=== PATIENT | male | born 2000 | race African-American/Black ===

== ENCOUNTER 2019-11-08 17:00 | Emergency (ER) | payer MEDICAID, SELFPAY ==
[2019-11-08] MEDS ORDERED: Dexamethasone 4 MG TAB ONE (18:32)
[2019-11-08] MEDS ORDERED: Dexamethasone 4 mg/ml Vial ONE (18:37)
--- NOTE | 2019-11-08 19:12 | RAD ---
EXAM: CHEST TWO VIEWS: 11/08/19 HISTORY: Asthma, ran out of inhaler medicine, shortness of breath. COMPARISON: 03/03/15. FINDINGS: Heart size is normal. The lungs are clear. IMPRESSION: No significant acute intrathoracic disease. POS: RRE
== END 2019-11-08 19:25 | disposition home or self-care (01) ==
LOC: ERS 17:00
DX: J45.909 Unspecified asthma, uncomplicated (principal); F90.9 Attention-deficit hyperactivity disorder, unspecified type
CPT/HCPCS: 71046; 94640; J1100; J7620; J8540

== ENCOUNTER 2023-05-09 13:35 | Emergency (ER) | payer SELFPAY ==
[2023-05-09 14:50] LABS: #Eosinphils 0.2 thou/uL (0.0-0.7); #Monocytes 0.7 thou/uL (0.11-0.59); #Neutrophils 3.5 thou/uL (1.40-6.50); %Basophils 0.4 % (0.0-1.0); %Eosinophils 2.4 % (0.0-10.0); %Lymphocytes 33.7 % (21.0-51.0); %Monocytes 10.4 % (0.0-10.0); %Neutrophils 52.8 % (42.0-75.0); Mean Corpuscular HGB CONC 34.1 g/dL (32.0-36.0); Mean Corpuscular Hemoglobin 29.7 pg (27.0-31.0); Mean Corpuscular Volume 87.1 fl (78.0-98.0); Mean Platelet Volume 9.3 fL (7.4-10.4); Platelet Count 306 10x3/uL (130-400); RBC Distribution Width 12.7 % (11.5-14.5); Red Blood Cell (RBC) Count 4.72 mill/uL (4.70-6.10); White Blood Cell (WBC) Count 6.7 10x3/uL (4.8-10.8)
[2023-05-09] MEDS ORDERED: Ketorolac Tromethamine 30 MG/ML VIAL ONE (14:55)
[2023-05-09 15:30] LABS: ALT (SGPT) 32 U/L (8-55); AST (SGOT) 49 U/L (5-34); Albumin 4.7 g/dL (3.5-5.0); Alkaline Phosphatase 74 U/L (40-110); Anion Gap 15 mmol/L (10-20); BUN (Urea Nitrogen) 15 mg/dL (8.9-20.6); Bilirubin, Total 0.4 mg/dL (0.2-1.2); Calc. Creatinine Clearance 0 mL/min (70-130); Calcium 10.2 mg/dL (7.8-10.44); Carbon Dioxide 24 mmol/L (22-29); Chloride 106 mmol/L (98-107); Estimated GFR 86; Globulin 3.2 g/dL (2.4-3.5); Glucose 100 mg/dL (70-105); Potassium 3.7 mmol/L (3.5-5.1); Protein, Total 7.9 g/dL (6.0-8.3); Sodium 141 mmol/L (136-145)
== END 2023-05-09 17:26 | disposition home or self-care (01) ==
LOC: ERS 13:35
DX: R55 Syncope and collapse (principal); F17.290 Nicotine dependence, other tobacco product, uncomplicated
CPT/HCPCS: 36415; 70450; 72100; 80053; 84484; 85025; 93005; 96372; J1885